=== PATIENT | female | born 1940 | race Caucasian/White ===

== ENCOUNTER 2024-08-01 10:35 | Inpatient (IN) | payer MEDICARE ==
[~2024-08-01] VITALS: Ht 160 cm
[~2024-08-01 10:35] MED LIST: ACETAMINOPHEN500 M4 PO; ASPIRIN81 M1 PO; ATENOLOL50 M1 PO; AZITHROMYCIN500 M2 PO; CEFDINIR300 MG PO; DONEPEZIL HYDRO10 M1 PO; DULCOLAX STOOL100 M1 PO; FLONASE ALLERG9.9 ML NAS; LASIX40 MG PO; LEVOTHYROXINE50 MCG PO; LOSARTAN-HCTZ1 EACH PO; MELATONIN5 M1 PO; MEMANTINE HCL10 MG PO; METFORMIN HYDR500 MG PO; MIRTAZAPINE15 M2 PO; MYLANTA MAXIMU355 M1 PO; NASAL SPRAY44 M1 NAS; NEUDEXT PO; NICODERM CQ1 EACH TD; ONDANSETRON HYDR4 MG PO; OXYCODONE HCL5 MG PO; PALIPERIDONE ER3 MG PO; POTASSIUM CHLO20 ME4 PO; PREDNISONE10 MG PO; PREPARATION H C26 GM T; PREPARATION H1 EAC3 R; REFRESH PLUS1 EACH OP; REXULTI1 MG PO; RIVASTIGMINE1 EAC2 T; VISTARIL25 M2 PO; VITAMIN D350 MCG PO; VOLTAREN ARTHRI20 GM T
[2024-08-01] MEDS ORDERED: hydrOXYzine pamoate 25 MG CAP PO PRN (14:20)
[2024-08-01 14:21] VITALS: BP 108/76
[2024-08-01] MEDS ORDERED: Ziprasidone Mesylate 20 MG VIAL IM PRN (14:25)
[2024-08-01] MEDS ORDERED: ACETAMINOPHEN 325 MG TAB PO PRN (14:30)
[2024-08-01] MEDS ORDERED: Magnesium Hydroxide 30 ML UDC PO PRN (14:30)
[2024-08-01] MEDS ORDERED: MG-AL HYDROXIDE/SIMETICONE 30 ML UDC PO PRN (14:30)
[2024-08-01 20:00] VITALS: BP 108/71
[2024-08-01] MEDS ORDERED: RISPERIDONE 0.25 MG TAB PO SCH (21:00)
[2024-08-01] MEDS ORDERED: Menthol/Zinc Oxide 4 GM THIN T SCH (21:00)
[2024-08-01] MEDS ORDERED: Dextromethorphan/Quinidine 20-10 mg cap PO SCH (21:00)
[2024-08-01] MEDS ORDERED: Memantine Hydrochloride 10 MG TAB PO SCH (21:00)
[2024-08-01] MEDS ORDERED: Mirtazapine 15 MG TAB PO SCH (21:00)
[2024-08-02 06:41] LABS: BASO % 0.2 % (0.0-1.0); EOS # 0.3 10*3/uL (0.0-0.4); EOS % 2.4 % (1.0-4.0); HEMATOCRIT 33.3 % (37.0-47.0); MEAN CELL VOLUME 100.6 fl (81.0-99.0); MEAN CORPUSCULAR HGB 30.5 pg (27.0-31.0); MEAN CORPUSCULAR HGB CONC 30.3 g/dl (33.0-37.0); MEAN PLATELET VOLUME 11.5 fl (9.6-12.3); MONO # 1.2 10*3/uL (0.1-1.0); MONO % 9.2 % (3.0-9.0); NEUT # 8.2 10*3/uL (2.3-7.9); NEUT % 63.4 % (47.0-73.0); PLATELET COUNT AUTOMATED 187 10*3/uL (130-400); RED BLOOD COUNT 3.31 10*6/uL (4.10-5.10); RED CELL DISTRI WIDTH 13.3 % (0-14.5)
[2024-08-02 07:14] LABS: ALKALINE PHOSPHATASE 65 U/L (46-116); BUN 20 mg/dl (9-23); CHLORIDE 98 mmol/L (98-107); POTASSIUM 3.2 mmol/L (3.4-5.1); SGPT/ALT 20 U/L (5-49); TOTAL PROTEIN 6.2 gm/dL (6.0-8.0)
[2024-08-02 07:45] VITALS: BP 142/79
[2024-08-02] MEDS ORDERED: RIVASTIGMINE 13.3 MG/24 HR TDM T SCH (09:00)
[2024-08-02] MEDS ORDERED: Melatonin 5 MG TABLET PO PRN (10:30)
[2024-08-02] MEDS ORDERED: [UNRECOGNIZED DRUG - OTHER] R PRN (10:30)
[2024-08-02] MEDS ORDERED: PREPARATION H SRF/SHARK LIVER 1 OZ TUBE R PRN (10:30)
[2024-08-02] MEDS ORDERED: DEXTROSE 10 % IN WATER 250 ML IV PRN (10:35)
[2024-08-02] MEDS ORDERED: predniSONE 10 MG TAB PO ONE (11:00)
[2024-08-02] MEDS ORDERED: DEXTROSE 50% 25 GM/50 ML VIAL IV PRN (11:00)
[2024-08-02] MEDS ORDERED: AZITHROMYCIN 250 MG TAB PO SCH (11:00)
[2024-08-02] MEDS ORDERED: CEFDINIR 300 MG CAP PO SCH (11:00)
[2024-08-02] MEDS ORDERED: INSULIN LISPRO 1 UNIT/0.01 ML SQ SCH (11:30)
[2024-08-02] MEDS ORDERED: DICLOFENAC SODIUM 100 GM TUBE T SCH (13:00)
[2024-08-02 19:13] VITALS: BP 154/52
[2024-08-02] MEDS ORDERED: FLUTICASONE PROPIONATE Nasal 16 Gm spray NAS SCH (21:00)
[2024-08-03] MEDS ORDERED: Levothyroxine Sodium 50 MCG TAB PO SCH (06:00)
[2024-08-03 07:58] VITALS: BP 125/71
[2024-08-03] MEDS ORDERED: SODIUM CHLORIDE Nasal 44 ml bottle NAS SCH (09:00)
[2024-08-03] MEDS ORDERED: predniSONE 10 MG TAB PO SCH (09:00)
[2024-08-03] MEDS ORDERED: POTASSIUM CHLORIDE 20 MEQ TAB PO SCH (09:00)
[2024-08-03] MEDS ORDERED: Cholecalciferol 2,000 UNIT TABLET (50 MCG) PO SCH (09:00)
[2024-08-03] MEDS ORDERED: FUROSEMIDE 40 MG TAB PO SCH (09:00)
[2024-08-03] MEDS ORDERED: ASPIRIN ENTERIC COATED 81 MG TAB PO SCH (09:00)
[2024-08-03] MEDS ORDERED: RISPERIDONE 0.5 MG TAB PO SCH (09:28)
[2024-08-03] MEDS ORDERED: ALPRAZolam 0.5 MG TAB PO PRN (14:50)
[2024-08-03 20:00] VITALS: BP 101/57
[2024-08-04 08:00] VITALS: BP 108/51
[2024-08-04] MEDS ORDERED: Menthol/Zinc Oxide 4 GM THIN T PRN (12:10)
[2024-08-04] MEDS ORDERED: ALPRAZolam 0.5 MG TAB PO SCH (13:00)
[2024-08-04 20:00] VITALS: BP 120/68
[2024-08-04] MEDS ORDERED: Menthol/Zinc Oxide 4 GM THIN T SCH (21:00)
[2024-08-05 08:00] VITALS: BP 127/51
[2024-08-05] MEDS ORDERED: ALPRAZolam 0.5 MG TAB PO SCH (13:00)
[2024-08-05 20:00] VITALS: BP 115/55
[2024-08-06 08:24] VITALS: BP 104/43
[2024-08-06 20:00] VITALS: BP 113/67
[2024-08-07 06:14] LABS: BASO # 0.1 10*3/uL (0.0-0.1); BASO % 0.4 % (0.0-1.0); EOS # 0.6 10*3/uL (0.0-0.4); EOS % 4.7 % (1.0-4.0); HEMATOCRIT 33.4 % (37.0-47.0); MEAN CELL VOLUME 100.6 fl (81.0-99.0); MEAN CORPUSCULAR HGB 30.1 pg (27.0-31.0); MEAN CORPUSCULAR HGB CONC 29.9 g/dl (33.0-37.0); MEAN PLATELET VOLUME 9.6 fl (9.6-12.3); MONO # 0.8 10*3/uL (0.1-1.0); MONO % 6.6 % (3.0-9.0); NEUT # 7.4 10*3/uL (2.3-7.9); PLATELET COUNT AUTOMATED 273 10*3/uL (130-400); RED BLOOD COUNT 3.32 10*6/uL (4.10-5.10); RED CELL DISTRI WIDTH 13.3 % (0-14.5); WHITE BLOOD COUNT 11.9 10*3/uL (4.8-10.8)
[2024-08-07 06:35] LABS: BUN 22 mg/dl (9-23); CHLORIDE 98 mmol/L (98-107); POTASSIUM 3.8 mmol/L (3.4-5.1)
[2024-08-07 07:39] VITALS: BP 131/74
[2024-08-07 16:20] LABS: BILIRUBIN Negative (Negative); BLOOD Negative (Negative); CLARITY Clear (Clear); COLOR Yellow (Yellow); GLUCOSE Negative (Negative); KETONE Negative (Negative); LEUKO ESTERASE 3+ (Negative); NITRITE Negative (Negative); PH 7.5 (4.5-8.0); SPECIFIC GRAVITY <= 1.005 (1.001-1.030); UROBILINOGEN 0.2 E.U./dl (0.0-1.0)
[2024-08-07 16:31] LABS: WBC TNTC wbc/hpf (0-5); YEAST 2+
[2024-08-07] MEDS ORDERED: FLUCONAZOLE 150 MG TAB PO ONE (17:10)
[2024-08-07 20:00] VITALS: BP 129/74
[2024-08-07] MEDS ORDERED: PRIMIDONE 50 MG TAB PO SCH (21:00)
[2024-08-08 07:26] LABS: BUN 19 mg/dl (9-23); CHLORIDE 98 mmol/L (98-107); POTASSIUM 4.7 mmol/L (3.4-5.1)
[2024-08-08 07:57] VITALS: BP 124/65
[2024-08-08] MEDS ORDERED: SODIUM CHLORIDE 0.9% 1,000 ML IV ONE (16:35)
[2024-08-08 17:34] LABS: ARTERIAL BLOOD GAS PH 7.406 (7.350-7.450); ARTERIAL BLOOD GAS PO2 78.3 mmHg (83.0-108.0)
[2024-08-08 17:40] LABS: ABG BASE EXCESS 13.7 mmol/L (-2.0-3.0)
[2024-08-08 20:00] VITALS: BP 122/69
[2024-08-09 08:07] VITALS: BP 120/53
[2024-08-09] MEDS ORDERED: NYSTATIN 15 GM BOT T PRN (10:45)
[2024-08-09 15:21] VITALS: BP 106/54
[2024-08-09 16:36] LABS: ARTERIAL BLOOD GAS PH 7.403 (7.350-7.450)
[2024-08-09 16:38] LABS: ABG O2 SATURATION 97.1 % (94.0-98.0); ARTERIAL BLOOD GAS PO2 92.1 mmHg (83.0-108.0)
[2024-08-09 16:41] LABS: ABG BASE EXCESS 13.9 mmol/L (-2.0-3.0)
[2024-08-09 20:00] VITALS: BP 126/66
[2024-08-10 07:54] VITALS: BP 123/58
[2024-08-10 19:10] VITALS: BP 122/61
[2024-08-11 20:00] VITALS: BP 130/89
[2024-08-11] MEDS ORDERED: PRIMIDONE 50 MG TAB PO SCH (21:00)
[2024-08-12 08:00] VITALS: BP 117/73
[2024-08-12] MEDS ORDERED: RIVASTIGMINE1 EAC2 T (08:55)
[2024-08-12] MEDS ORDERED: MEMANTINE HCL10 MG PO (08:55)
[2024-08-12] MEDS ORDERED: NEUDEXT PO (08:55)
[2024-08-12] MEDS ORDERED: Mysoline50 MG PO (08:55)
[2024-08-12] MEDS ORDERED: MIRTAZAPINE15 M2 PO (08:55)
== END 2024-08-12 11:40 | DRG 885 ==
LOC: 3N 10:35
PROVIDERS: Registered Nurse; Student in an Organized Health Care Education/Training Program; ADMIT Psychiatry & Neurology Psychiatry; ATTEND Psychiatry & Neurology Psychiatry
PROC: GZHZZZZ Group Psychotherapy (ICD-10-PCS; principal; 2024-08-03)
PROC: GZ51ZZZ Individual Psychotherapy, Behavioral (ICD-10-PCS; 2024-08-03)
PROC: 5A09357 Assistance with Respiratory Ventilation, Less than 24 Consecutive Hours, Continuous Positive Airway Pressure (ICD-10-PCS; 2024-08-10)
PROC: 5A09357 Assistance with Respiratory Ventilation, Less than 24 Consecutive Hours, Continuous Positive Airway Pressure (ICD-10-PCS; 2024-08-11)
DX: F23 Brief psychotic disorder (principal); J96.12 Chronic respiratory failure with hypercapnia; J18.9 Pneumonia, unspecified organism; N39.0 Urinary tract infection, site not specified; E44.0 Moderate protein-calorie malnutrition; G30.9 Alzheimer's disease, unspecified; F02.80 Dementia in other diseases classified elsewhere, unspecified severity, without behavioral disturbance, psychotic disturbance, mood disturbance, and anxiety; F32.9 Major depressive disorder, single episode, unspecified; J44.9 Chronic obstructive pulmonary disease, unspecified; Z66 Do not resuscitate; I10 Essential (primary) hypertension; E03.9 Hypothyroidism, unspecified; G47.00 Insomnia, unspecified; F41.1 Generalized anxiety disorder; E11.51 Type 2 diabetes mellitus with diabetic peripheral angiopathy without gangrene; K21.9 Gastro-esophageal reflux disease without esophagitis; F17.210 Nicotine dependence, cigarettes, uncomplicated; Z88.0 Allergy status to penicillin; Z88.8 Allergy status to other drugs, medicaments and biological substances; Z79.899 Other long term (current) drug therapy; Z68.29 Body mass index [BMI] 29.0-29.9, adult